=== PATIENT | female | born 1975 | race Caucasian/White ===

== ENCOUNTER 2017-04-28 04:19 | Emergency (ER) | payer OTHER ==
[~2017-04-28] VITALS: Ht 152.4 cm; Wt 54.4 kg
== END 2017-04-28 15:25 | disposition home or self-care (01) ==
LOC: ER 04:19
DX: R10.13 Epigastric pain (principal)

== ENCOUNTER 2019-04-11 21:47 | Emergency (ER) | payer OTHER ==
[~2019-04-11] VITALS: Ht 152.4 cm; Wt 54.4 kg
== END 2019-04-12 00:09 | disposition home or self-care (01) ==
LOC: ER 21:47
DX: S31.153A Open bite of abdominal wall, right lower quadrant without penetration into peritoneal cavity, initial encounter (principal); W54.0XXA Bitten by dog, initial encounter; Y93.02 Activity, running; Y92.830 Public park as the place of occurrence of the external cause; Y99.8 Other external cause status